=== PATIENT | female | born 1955 | race Caucasian/White ===

== ENCOUNTER 2019-07-07 13:34 | Day surgery (SDC) | payer OTHER ==
[~2019-07-07] VITALS: Ht 172.7 cm; Wt 57.9 kg
[~2019-07-07 13:34] MED LIST: ADVIL; GAS-X; PROZAC; SENNOSIDES; XANAX
[2019-07-07 14:31] VITALS: Ht 172.7 cm; Wt 57.9 kg
[2019-07-07 14:36] VITALS: BP 130/72; PULSE 77; RESP 10
--- NOTE | 2019-07-07 15:35 | PREAC ---
Date/Time of Note Date/Time of Note DATE: 07/07/19 TIME: 15:34 Anesthesia Eval and Record Evaluation Time Pre-Procedure Interview DATE: 07/07/19 TIME: 15:34 Age 63 Sex female NPO: 8 hrs Preoperative diagnosis CHANGE IN BOWEL HABITS, CONSTIPATION Planned procedure COLONOSCOPY Past Medical History Past Medical History: Includes GI: GERD Psych: Depression, Anxiety Surgery & Anesthesia Issues No known issue Meds Anticoagulation: No Beta Rupert within 24 hr: No Reason Beta Rupert not given: Pt. not on B-Rupert Reported Medications [Sennosides] No Conflict Check 07/07/19 [Gas-X] No Conflict Check 07/07/19 [Advil] No Conflict Check 07/07/19 [Xanax] No Conflict Check 07/07/19 [Prozac] No Conflict Check 07/07/19 Meds reviewed: Yes Allergies Coded Allergies: No Known Allergy (Unverified , 07/07/19) Allergies Reviewed: Yes Labs/Studies Labs Reviewed: Reviewed by anesthesiologist test: N/A Pre-procedure Exam Last vitals Vital Signs Date Temp Pulse Resp B/P (MAP) Pulse Ox O2 O2 Flow FiO2 Time Delivery Rate 07/07/19 98.0 77 10 130/72 95 Room Air 14:36 (91) Airway: Adequate mouth opening, Adequate thyromental dist Mallampati: Mallampati II Teeth: Normal Lung: Normal Heart: Normal ASA Physical Status ASA physical status: 1 Emergency: None Planned Anesthetic General/MAC: MAC Planned Pain Management Parenteral pain med Pre-operative Attestations Prior to commencing anesthesia and surgery, the patient was re-evaluated, there was verification of: *The patient's identity *The results of appropriate recent lab work and preoperative vital signs *The above evaluation not changing prior to induction *Anesthetic plan, risk benefits, alternative and complications discussed with patient/family; questions answered; patient/family understands, accepts and wishes to proceed. Toi Handy M.D. Jul 07, 2019 15:35
[2019-07-07] MEDS ORDERED: PROPOFOL 40 ML ONE (16:36)
[2019-07-07] MEDS ORDERED: LIDOCAINE 100 MG SYRINGE ONE (16:36)
[2019-07-07] MEDS ORDERED: PROPOFOL 200 MG INJ ONE (16:36)
--- NOTE | 2019-07-07 16:53 | PAC ---
Date/Time of Note Date/Time of Note DATE: 07/07/19 TIME: 16:53 Post-Anesthesia Notes Post-Anesthesia Note Last documented vital signs Vital Signs Date Temp Pulse Resp B/P (MAP) Pulse Ox O2 O2 Flow FiO2 Time Delivery Rate 07/07/19 98.0 77 10 130/72 95 Room Air 14:36 (91) Activity: WNL Respiratory function: WNL Cardiovascular function: WNL Mental status: Baseline Pain reasonably controlled: Yes Hydration appropriate: Yes Nausea/Vomiting absent: Yes Toi Handy M.D. Jul 07, 2019 16:53
== END 2019-07-07 18:15 | disposition home or self-care (01) ==
LOC: GIL 13:34
PROVIDERS: ATTEND Internal Medicine Gastroenterology
DX: Z12.11 Encounter for screening for malignant neoplasm of colon (principal); K64.8 Other hemorrhoids
CPT/HCPCS: 45378; J2001